=== PATIENT | female | born 1985 | race Caucasian/White ===

== ENCOUNTER 2017-06-30 18:23 | Inpatient (IN) | payer SELFPAY ==
[~2017-06-30] VITALS: Ht 160 cm; Wt 93.4 kg
--- NOTE | 2017-06-30 18:27 | NUR ---
Patient ambulated to bed 03.
--- NOTE | 2017-06-30 18:32 | NUR ---
[place] [employer] AT BEDSIDE.
[2017-06-30] MEDS ORDERED: ACTIVATED CHARCOAL 50 GM/240 ML TUBE PO ONE (18:35)
--- NOTE | 2017-06-30 18:35 | NUR ---
[place] Acevedo AT BEDSIDE.
[2017-06-30 18:39] VITALS: BP 190/121
[2017-06-30] MEDS ORDERED: ACTIVATED CHARCOAL 50 GM/240 ML TUBE ONE (18:40)
--- NOTE | 2017-06-30 18:40 | NUR ---
T IS 32Y/O HF PRESENTS TO ER FOR EVALUATION OF SUICIDAL IDEATION S/P INGESTING 24 500MG ACETAMINOPHEN TABLETS. PER HI SAID SHE TOOK THE MEDS IN THE BOTTLE. HX APPENDECTOMY. PT AA/O X3, RESP EVEN AND REGULAR.
--- NOTE | 2017-06-30 18:51 | NUR ---
MULTI PURPOSE MACHINE OPERATOR AT BEDSIDE AT THIS TIME.
--- NOTE | 2017-06-30 18:56 | NUR ---
pt stated intentional suicidal attempt by taking full container of tylenol pm--500mg tylenol w benadryl a/o x4 full clear speech---admits not medication compliant due to not having insurance for rx . Mounika HOGAN at bedside speaking with pt.- Officer Frannie #[phone]
[2017-06-30 19:02] LABS: BASOPHILS # (AUTO) 0.4 K/uL (0.00-0.22); EOSINOPHILS # (AUTO) 0.1 K/uL (0-0.4); HEMATOCRIT 40.7 % (36-48); HEMOGLOBIN 13.7 g/dL (12.0-16.0); MEAN CORPUSCULAR HEMOGLOBIN 30 pg (27-31); MEAN CORPUSCULAR HGB CONC 34 g/dL (33-37); MEAN CORPUSCULAR VOLUME 90 fL (80-94); MONOCYTES # (AUTO) 0.6 K/uL (0.8-1.0); PLATELET COUNT (AUTO) 289 K/uL (140-450); RED BLOOD CELL COUNT(AUTO) 4.55 MIL/uL (4.20-5.40); RED CELL DISTRIBUTION WIDTH 12.2 % (11.6-13.7); WHITE BLOOD COUNT (AUTO) 9.1 K/uL (4.8-10.8)
[2017-06-30 19:40] LABS: ALBUMIN 4.3 g/dL (3.4-5.0); ANION GAP 13.8 (8-16); ASPARTATE AMINOTRANSFERASE 21 U/L (15-37); CARBON DIOXIDE 24.8 mmol/L (21-32); CHLORIDE 104 mmol/L (98-107); CREATININE 0.9 mg/dL (0.6-1.3); GFR ARICAN-AMERICAN 93 mL/min (>90); GLUCOSE 120 mg/dL (74-106); POTASSIUM 3.6 mmol/L (3.5-5.1); SODIUM SERUM 139 mmol/L (136-145); TOTAL BILIRUBIN 0.4 mg/dL (0.0-1.0)
[2017-06-30 19:42] LABS: SALICYLATE < 2.8 mg/dL (2.8-20.0)
--- NOTE | 2017-06-30 19:44 | NUR ---
REPORTED TO POISON CONTROL AND SPOKEN TO PAOLO AND ADVISED, TO MONITOR , AND IF THE TYLENOL LEVEL GREATER THAN 10, LIVER ENZYMES ELEVATED, TO GIVE COOL MIST, AND CALL FOR DOSING.
[2017-06-30 19:51] LABS: ACETAMINOPHEN 148.2 ug/ml (10-30)
[2017-06-30 19:52] LABS: UREA NITROGEN, BLOOD 18 mg/dL (7-18)
--- NOTE | 2017-06-30 20:08 | NUR ---
Dr. Hardin evaluating patient at bedside.
--- NOTE | 2017-06-30 20:10 | NUR ---
SISTER AT BEDSIDE. PT SITTING QUIETLY AND AWAKE, SITTER AT BEDSIDE. SISTER REQUESTED TO TAKE PT'S BELONGINGS HOME, SECURITY CALLED, FAMILY HAS POSSESSION OF BELONGINGS.
--- NOTE | 2017-06-30 20:15 | NUR ---
poison controlled called regarding acetaminopehn levels/ LFTs/labs. received order to do repeat labs at 2200. SILVANA CANALES Sechrist informed.
--- NOTE | 2017-06-30 20:30 | NUR ---
SPOKEN TO PAOLO AND INFORMED HER THAT SHE TOOK ACETAMINOPHEN PM, AND ADVISED TO PUT ON SINGING TELEGRAM PERFORMER FOR 6 HOURS, ANF IF QRS PROLONGED GREATER THAN 120 SEC, TO ADMINISTER SODIUM BICARBONATE BOLUS, ON SEIZURE PRECAUTION, AND OBSERVED FOR AGITATION.
--- NOTE | 2017-06-30 20:30 | NUR ---
Noted by Dannielle.
[2017-06-30 21:10] LABS: APPEARANCE,URINE CLEAR (CLEAR); BILIRUBIN,URINE NEGATIVE (NEGATIVE); BLOOD, URINE NEGATIVE (NEGATIVE); LEUKOCYTE ESTERASE ,URINE NEGATIVE (NEGATIVE); NITRITE, URINE NEGATIVE (NEGATIVE); PH,URINE 5.5 (5.0-9.0); UGLUCOSE NEGATIVE (NEGATIVE)
[2017-06-30 21:13] LABS: COLOR,URINE STRAW (YELLOW)
--- NOTE | 2017-06-30 21:19 | NUR ---
Patient appears to be resting comfortably in bed. Respirations even and unlabored. All needs met at this time. sitter at bedside
[2017-06-30 21:20] LABS: BARBITURATE, URINE NEG. ng/ml (NEG <=200); BENZODIAZEPINE, URINE NEG. ng/mL (NEG <=200); CANNABINOID, URINE NEG. ng/mL (NEG <=50); COCAINE, URINE NEG. ng/mL (NEG <=300); OPIATE, URINE NEG. ng/mL (NEG <=2000); PHENCYCLIDINE SCREEN,URINE NEG. ng/mL (NEG <=25)
--- NOTE | 2017-06-30 22:10 | NUR ---
PT VOMITING X 30CC, BLACK EMESIS. ER MADE AWARE, ORDER FOR ZOFRAN RECEIVED, SEE MAR.
[2017-06-30] MEDS ORDERED: ONDANSETRON 4 MG/2 ML VIAL IVP ONE (22:15)
--- NOTE | 2017-06-30 22:31 | NUR ---
NO FURTHER EMETIC EPISODE NOTED, PT RESTING COMFORTABLY, VSS. ALL NEEDS MET AT THIS TIME. SITTER AT BEDSIDE
[2017-06-30] MEDS: NACL 0.9% 1,000 ML IV SCH (22:57)
[2017-06-30] MEDS ORDERED: ONDANSETRON 4 MG/2 ML VIAL IVP PRN (23:00)
[2017-06-30] MEDS ORDERED: HYDROcodone/APAP 7.5/325 MG 1 TAB PO PRN (23:00)
[2017-06-30] MEDS ORDERED: ACETAMINOPHEN 325 MG TAB PO PRN (23:00)
[2017-06-30] MEDS ORDERED: PANTOPRAZOLE 40 MG TABEC PO PRN (23:10)
[2017-06-30] MEDS ORDERED: LORazepam 1 MG TAB PO PRN (23:15)
--- NOTE | 2017-06-30 23:21 | NUR ---
Patient will be admitted to [facility]. Admited to TELE. Will go to room 109A Belongings list completed. BEDSIDE Report to [place]. IV SL AND PATENT. PT STABLE DURING TRANSFER.
--- NOTE | 2017-06-30 23:35 | NUR ---
ADMITTED 5150 PATIENT TO THE TELE UNIT, PATIENT IS SLEEPING AT THIS TIME, EASY TO AROUSE BUT DROWSY. A/OX2, NO S/S OF DISTRESS NOTED, RESPIRATION EVEN AND UNLABORED. VITAL SIGN STABLE, 1:1 SITTER AT BEDSIDE. SAFETY MEASURE ENSURED, WILL CONTINUE TO MONITOR.
--- NOTE | 2017-06-30 23:55 | NUR ---
MIGEL FROM POISON CONTROL CALLED, INFORMED HER ABOUT PATIENT'S CONDITION, MIGEL STATED, " AT THIS MOMENT, JUST OBSERVE HOW PATIENT IS DOING, IF THERE IS ANY CHANGE IN CONDITION, CALL ."
[2017-07-01] VITALS (9 sets, daily range): BP systolic 113–185; BP diastolic 77–114
[2017-07-01] MEDS ORDERED: LACTULOSE 20 GM/30 ML UDC PO SCH (00:20)
[2017-07-01 00:25] LABS: CHOL/HDL RATIO 2.5 (1-4.5); FREE T4 (FREE THYROXINE) 1.2 ng/dL (0.76-1.46); PHOSPHORUS 5.4 mg/dL (2.5-4.9); THYROID STIMULATING HORMONE 2.31 uIU/mL (0.34-3.74)
[2017-07-01 00:29] LABS: PROTHROMBIN TIME 10.4 secs (10.8-13.4)
--- NOTE | 2017-07-01 02:00 | NUR ---
PATIENT IS SLEEPING, RESPIRATION EVEN AND UNLABORED, NO S/S OF DISTRESS NOTED, 1:1 SITTER AT BEDSIDE. SAFETY MEASURE ENSURED, WILL CONTINUE TO MONITOR.
--- NOTE | 2017-07-01 04:01 | NUR ---
NO CHANGE IN CONDITION, PATIENT IS SLEEPING, RESPIRATION EVEN AND UNLABORED, NO S/S OF DISTRESS NOTED, 1:1 SITTER AT BEDSIDE. SAFETY MEASURE ENSURED, WILL CONTINUE TO MONITOR.
[2017-07-01] MEDS: LACTULOSE 20 GM/30 ML UDC PO SCH ×3 (04:32→20:35)
[2017-07-01] MEDS ORDERED: LORazepam 1 MG TAB PO SCH (05:00)
--- NOTE | 2017-07-01 06:21 | NUR ---
PATIENT IS SLEEPING, RESPIRATION EVEN AND UNLABORED, NO S/S OF DISTRESS NOTED, 1:1 SITTER AT BEDSIDE. SAFETY MEASURE ENSURED, WILL CONTINUE TO MONITOR.
[2017-07-01 07:01] LABS: BASOPHILS # (AUTO) 0.1 K/uL (0.00-0.22); BASOPHILS % (AUTO) 2.2 % (0.0-2.0); EOSINOPHILS # (AUTO) 0.1 K/uL (0-0.4); EOSINOPHILS % (AUTO) 0.9 % (0.0-4.0); HEMATOCRIT 38.6 % (36-48); HEMOGLOBIN 13.1 g/dL (12.0-16.0); LYMPHOCYTES # (AUTO) 2.2 K/uL (2.5-16.5); LYMPHOCYTES % (AUTO) 32.8 % (20.5-51.1); MEAN CORPUSCULAR HEMOGLOBIN 30 pg (27-31); MEAN CORPUSCULAR HGB CONC 34 g/dL (33-37); MEAN CORPUSCULAR VOLUME 90 fL (80-94); MONOCYTES # (AUTO) 0.5 K/uL (0.8-1.0); MONOCYTES % (AUTO) 6.8 % (1.7-9.3); NEUTROPHILS # (AUTO) 3.8 K/uL (1.8-7.7); NEUTROPHILS % (AUTO) 57.3 % (42.2-75.2); PLATELET COUNT (AUTO) 292 K/uL (140-450); RED BLOOD CELL COUNT(AUTO) 4.31 MIL/uL (4.20-5.40); RED CELL DISTRIBUTION WIDTH 12.2 % (11.6-13.7); WHITE BLOOD COUNT (AUTO) 6.7 K/uL (4.8-10.8)
--- NOTE | 2017-07-01 07:20 | NUR ---
ENDORSED PLAN OF CARE TO DAY RN, PATIENT IS IN STABLE CONDITION, NO S/S OF DISTRESS NOTED.
--- NOTE | 2017-07-01 07:25 | NUR ---
RECEIVED PATIENT REPORT AT BEDSIDE FROM NIGHT NURSE. PT IS SLEEPING AND EASILY AWAKEN TO VOICE. PATIENT IS AAOX3 DENIES SUICIDAL THOUGHTS. SHE STATES, "I FEEL BETTER TODAY." PT ON TELE MONITOR. SITTER IS AT BEDSIDE. IV NOTED ON THE RT AC WITH IVF'S INFUSING WELL. SKIN IS INTACT. PATIENT DENIES PAIN, AND IS AWARE POC FOR TODAY. WILL CONTINUE TO MONITOR.
[2017-07-01 07:39] LABS: ANION GAP 11.9 (8-16); CARBON DIOXIDE 26.3 mmol/L (21-32); CREATININE 1.2 mg/dL (0.6-1.3); MAGNESIUM 2.3 mg/dL (1.8-2.4); PHOSPHORUS 4.7 mg/dL (2.5-4.9); POTASSIUM 3.2 mmol/L (3.5-5.1)
[2017-07-01] MEDS: DOCUSATE SODIUM 100 MG GELCAP PO SCH ×2 (08:20→20:35)
[2017-07-01] MEDS: CALCIUM ACETATE 667 MG TAB PO SCH (08:20)
[2017-07-01] MEDS: NACL 0.9% 1,000 ML IV SCH ×2 (08:21→18:38)
[2017-07-01] MEDS: FOLIC ACID 1 MG TAB PO SCH (08:21)
[2017-07-01] MEDS: THIAMINE 100 MG TAB PO SCH (08:21)
[2017-07-01] MEDS: MULTIVITAMIN 1 TAB PO SCH (08:21)
--- NOTE | 2017-07-01 08:26 | NUR ---
ADMINISTERED SCHEDULED MEDICATIONS. PT REFUSED MULTI VITAMIN STATED, "IT MAKES ME SICK AND WANT TO VOMIT." PT SWALLOWED REST OF MEDICATIONS WITHOUT DIFFICULTY. THE BED IS IN LOW POSITION, SITTER AT BEDSIDE.
[2017-07-01] MEDS ORDERED: PANTOPRAZOLE 40 MG INJ VIAL IVP SCH (09:00)
[2017-07-01] MEDS ORDERED: KCL 20 MEQ/WATER INJ PREMIX 100 ML IV SCH (11:11)
--- NOTE | 2017-07-01 11:30 | NUR ---
ADMINISTERED SCHEDULED MEDICATIONS. PT SWALLOWED WITHOUT DIFFICULTY. IV MEDICATION IS INFUSING WELL. PATIENT'S NEEDS MET AT THIS TIME. WILL CONTINUE TO MONITOR.
[2017-07-01 13:19] LABS: ALBUMIN 3.4 g/dL (3.4-5.0); ANION GAP 10.5 (8-16); CARBON DIOXIDE 27.7 mmol/L (21-32); CREATININE 1.1 mg/dL (0.6-1.3); POTASSIUM 3.2 mmol/L (3.5-5.1); TOTAL BILIRUBIN 0.3 mg/dL (0.0-1.0)
--- NOTE | 2017-07-01 13:20 | NUR ---
PATIENT IS SLEEPING AND SHOWS NO S/S OF ACUTE DISTRESS ON ROOM AIR. SITTER AT BEDSIDE.
--- NOTE | 2017-07-01 15:15 | NUR ---
PATIENT RESTING AND SHOWS NO S/S OF ACUTE DISTRESS ON ROOM AIR. THE BED IS IN LOW POSITION WITH SITTER AT BED SIDE.
--- NOTE | 2017-07-01 16:00 | NUR ---
PATIENT BP IS 173/105 HR 64 AND DENIES CHEST PAIN, SOB, AND HEADACHE. PT ONLY STATED, " I JUST FEEL SLEEPY." DR WESLEY NOTIFIED OF BP
--- NOTE | 2017-07-01 16:15 | NUR ---
PATIENT BP IS 185/114. DR PLACED ORDERS FOR NITROGLYCERIN 0.4 MG FOR HIGH BLOOD PRESSURE. WAITING FOR PHARMACY TO VERIFY ORDER.
[2017-07-01] MEDS ORDERED: NITROGLYCERIN 0.4 MG TAB SL SCH (16:30)
--- NOTE | 2017-07-01 16:55 | NUR ---
ADMINISTERED NITROGLYCERIN 0.4 MG FOR HIGH BLOOD PRESSURE WILL REASSESS BP IN 30 MIN. PATIENT IS ASYMPTOMATIC, DENIES CHEST PAIN, SOB, AND HEADACHE. WILL CONTINUE TO MONITOR.
--- NOTE | 2017-07-01 17:41 | NUR ---
PATIENT BP WAS REASSESSED AND IS AT 147/96 HR 64 AND SHOWS NO S/S OF ACUTE DISTRESS ON ROOM AIR, DENIES PAIN. WILL CONTINUE TO MONITOR.
--- NOTE | 2017-07-01 19:15 | NUR ---
RECEIVED REPORT FROM AM NURSE. PT RESTING IN BED, AOX4, AMBULATORY, ABLE TO VERBALIZE NEEDS. PT DENIES CHEST PAIN, SOB OR S/S OF ACUTE DISTRESS. PLANT SPRAYER IN PLACE. IV ACCESS ASYMPTOMATIC, PATENT AND INTACT. IVF INFUSING WELL. DISCUSSED AND REVIEWED PLAN OF CARE WITH PT. PT VERBALIZED UNDERSTANDING. ALL NEEDS MET. 1:1 SITTER WITH CLOSE MONITORING MAINTAINED, ENVIRONMENT CHECKED, SAFETY MEASURES ENSURED. WILL CONTINUE TO MONITOR.
--- NOTE | 2017-07-01 19:35 | NUR ---
BP 182/98 AND 177/93, HR 72. MADE DR VALENZUELA AWARE. ORDERS PENDING, WILL CARRY OUT.
[2017-07-01] MEDS: METOPROLOL SUCCINATE 50 MG TABER PO SCH (20:36)
--- NOTE | 2017-07-01 20:36 | NUR ---
PT'S BP RECHECKED 141/72 AND 141/79, HR 77. MADE DR VALENZUELA AWARE. ADMINISTERED DUE MEDS TOPROL XL 12.5MG PO AND ATIVAN 1MG PO ORDERED BY , AND REMAINING DUE MEDS WITH EDUCATION. PT VERBALIZED UNDERSTANDING, TOLERATED WELL. ALL NEEDS MET. IVF INFUSING WELL. SAFETY MEASURES ENSURED. CALL LIGHT WITHIN REACH. WILL CONTINUE TO MONITOR.
--- NOTE | 2017-07-01 20:40 | NUR ---
DR MARTINEZ AT BEDSIDE TO DISCUSS PT CONDITION AND PLAN OF CARE WITH PT. WAS NOTIFIED THAT PT IS CLEARED FROM THE 5150 HOLD.
--- NOTE | 2017-07-01 22:02 | NUR ---
PT TRANSFERRED TO ROOM 112A. ALL BELONGINGS CHECKED. ENDORSED PLAN OF CARE TO AM NURSE. CONDITION STABLE. Addendum: 07/01/17 at 2204 by Elijah Grant RN ENDORSED PLAN OF CARE TO CONTINUING NURSE.
--- NOTE | 2017-07-01 22:03 | NUR ---
PATIENT REPORT RECEIVED FROM CIPRIANO THOMPSON. PATIENT TRANSFERRED TO 112A. PATIENT NO LONGER NEEDS 1:1 SITTER. PATIENT IS AWAKE, ALERT AND ORIENTED. NO SIGNS AND SYMPTOMS OF DISTRESS NOTED. NO COMPLAINTS OF PAIN AT THIS TIME. BED IN LOWEST POSITION, SIDE RAILS UP AND CALL LIGHT WITHIN REACH. WILL CONTINUE TO MONITOR.
[2017-07-02] VITALS: BP 138/81
--- NOTE | 2017-07-02 03:30 | NUR ---
CHECKED ON PATIENT. PATIENT IS ASLEEP. NO SIGNS AND SYMPTOMS OF DISTRESS NOTED. BED IN LOWEST POSITION, SIDE RAILS UP AND CALL LIGHT WITHIN REACH. WILL CONTINUE TO MONITOR.
[2017-07-02 04:00] VITALS: BP 150/81
[2017-07-02] MEDS: LACTULOSE 20 GM/30 ML UDC PO SCH ×2 (04:34→12:23)
[2017-07-02] MEDS: NACL 0.9% 1,000 ML IV SCH ×2 (04:41→14:57)
[2017-07-02 07:06] LABS: BASOPHILS # (AUTO) 0.2 K/uL (0.00-0.22); BASOPHILS % (AUTO) 2.6 % (0.0-2.0); EOSINOPHILS # (AUTO) 0.1 K/uL (0-0.4); HEMOGLOBIN 12.1 g/dL (12.0-16.0); LYMPHOCYTES # (AUTO) 2.5 K/uL (2.5-16.5); LYMPHOCYTES % (AUTO) 32.4 % (20.5-51.1); MEAN CORPUSCULAR HEMOGLOBIN 30 pg (27-31); MEAN CORPUSCULAR HGB CONC 34 g/dL (33-37); MEAN CORPUSCULAR VOLUME 89 fL (80-94); MONOCYTES # (AUTO) 0.3 K/uL (0.8-1.0); MONOCYTES % (AUTO) 3.9 % (1.7-9.3); NEUTROPHILS # (AUTO) 4.5 K/uL (1.8-7.7); NEUTROPHILS % (AUTO) 60.1 % (42.2-75.2); PLATELET COUNT (AUTO) 240 K/uL (140-450); RED BLOOD CELL COUNT(AUTO) 4.03 MIL/uL (4.20-5.40); RED CELL DISTRIBUTION WIDTH 12.6 % (11.6-13.7); WHITE BLOOD COUNT (AUTO) 7.6 K/uL (4.8-10.8)
--- NOTE | 2017-07-02 07:14 | NUR ---
PATIENT REPORT GIVEN TO MORNING NURSE AT BEDSIDE. PATIENT IS IN STABLE CONDITION.
[2017-07-02 07:18] LABS: ANION GAP 11.5 (8-16); CARBON DIOXIDE 26.5 mmol/L (21-32); CREATININE 0.9 mg/dL (0.6-1.3); MAGNESIUM 1.8 mg/dL (1.8-2.4)
--- NOTE | 2017-07-02 07:40 | NUR ---
RECEIVED REPORT FROM CIPRIANO GARNER. PT RESTING IN BED. AAOX4. NO S/S OF ACUTE DISTRESS. PT DENIES PAIN. IV SITE PATENT AND INTACT. TELE BOX IN PLACE. CALL LIGHT WITHIN REACH. SAFETY MEASURES ENSURED. WILL CONTINUE TO MONITOR.
[2017-07-02 08:00] VITALS: BP 156/94
[2017-07-02] MEDS: FOLIC ACID 1 MG TAB PO SCH (08:36)
[2017-07-02] MEDS: CALCIUM ACETATE 667 MG TAB PO SCH (08:36)
[2017-07-02] MEDS: MULTIVITAMIN 1 TAB PO SCH (08:37)
[2017-07-02] MEDS: METOPROLOL SUCCINATE 50 MG TABER PO SCH (08:37)
[2017-07-02] MEDS: DOCUSATE SODIUM 100 MG GELCAP PO SCH (08:37)
[2017-07-02] MEDS: THIAMINE 100 MG TAB PO SCH (08:37)
[2017-07-02] MEDS ORDERED: METOPROLOL SUCCINATE 50 MG TABER PO SCH (09:00)
[2017-07-02] MEDS ORDERED: SERTRALINE 50 MG TAB PO SCH (09:00)
--- NOTE | 2017-07-02 09:59 | NUR ---
PATIENT HAS BEEN SCREENED AND CATEGORIZED LOW NUTRITION RISK. PATIENT WILL BE SEEN WITHIN 7 DAYS OF ADMISSION. 07/07/[address]
[2017-07-02 12:00] VITALS: BP 145/89
[2017-07-02] MEDS ORDERED: LORA-476 PO (13:38)
[2017-07-02] MEDS ORDERED: POTASSIUM CHLORIDE 10 MEQ TABER PO SCH (14:08)
--- NOTE | 2017-07-02 14:36 | NUR ---
PT CLEARED FOR DISCHARGE. NO S/S OF ACUTE DISTRESS. PT DENIES PAIN. IV TAKEN OUT TIP INTACT. AWAITING SISTER FOR CLOTHES AND TRANSPORT.
--- NOTE | 2017-07-02 15:50 | NUR ---
PT DISCHARGED. PAPERWORK EXPLAINED AND SIGNED. SISTER HERE FOR TRANSPORT. NO S/S OF ACUTE DISTRESS. PT DENIES PAIN. PT REFUSED WHEELCHAIR. PT AMBULATED TO FRONT LOBBY.
== END 2017-07-02 15:49 | disposition home or self-care (01) | DRG 917 ==
LOC: MED 18:23 → MTU 23:02
PROVIDERS: ADMIT Student in an Organized Health Care Education/Training Program; ATTEND Student in an Organized Health Care Education/Training Program
DX: T39.1X2A Poisoning by 4-Aminophenol derivatives, intentional self-harm, initial encounter (principal); G92 Toxic encephalopathy; F33.2 Major depressive disorder, recurrent severe without psychotic features; E72.20 Disorder of urea cycle metabolism, unspecified; R45.851 Suicidal ideations; Z91.14 Patient's other noncompliance with medication regimen; F41.1 Generalized anxiety disorder; Z91.5 Personal history of self-harm; F10.20 Alcohol dependence, uncomplicated; F15.10 Other stimulant abuse, uncomplicated; Y92.89 Other specified places as the place of occurrence of the external cause; E66.9 Obesity, unspecified; Z68.36 Body mass index [BMI] 36.0-36.9, adult; E83.39 Other disorders of phosphorus metabolism; E78.5 Hyperlipidemia, unspecified; E87.6 Hypokalemia; F41.9 Anxiety disorder, unspecified; I10 Essential (primary) hypertension
CPT/HCPCS: 36415; 71010; 80048; 80053; 80305; 81003; 81025; 82140; 82150; 82550; 82553; 83036; 83605; 83690; 83735; 83880; 84100; 84439; 84443; 84484; 85025; 85610; 85730; 87081; 93005; 96374; 99285; G0480; G0482; J2405; J3480; J7030

== ENCOUNTER 2017-07-09 13:36 | Emergency (ER) | payer SELFPAY ==
[~2017-07-09] VITALS: Ht 160 cm; Wt 99.8 kg
[~2017-07-09 13:36] MED LIST: LORA-476 PO
[2017-07-09 13:45] VITALS: BP 193/111
--- NOTE | 2017-07-09 13:52 | NUR ---
PATIENT TRIAGED AND SENT TO LOBBY STABLE AT THIS TIME.
--- NOTE | 2017-07-09 15:15 | NUR ---
CALLED PATIENT TO OVERFLOW FROM LOBBY; NO ANSWER. PATIENT LEFT WITHOUT BEING SEEN BY DR. OJEDA. NO FURTHER CARE PROVIDED FOR PATIENT.
== END 2017-07-09 15:15 | disposition left against medical advice (07) ==
LOC: MED 13:36
DX: Z53.21 Procedure and treatment not carried out due to patient leaving prior to being seen by health care provider (principal)

== ENCOUNTER 2018-12-25 23:32 | Emergency (ER) | payer SELFPAY ==
[~2018-12-25] VITALS: Ht 160 cm; Wt 88.9 kg
[2018-12-25 23:35] VITALS: BP 168/95
--- NOTE | 2018-12-26 00:05 | NUR ---
PT BIB SELF C/O HIGH BLOOD PRESSURE. PT STATES SHE HAS NOT BEEN FEELING WELL SINCE THIS MORNING, BP WAS HIGH AT HOME IN THE 220s PT TOOK LOSARTAN THIS MORNING, PT STILL FELT ANXIOUS ALL DAY. PT STATES 3/10 RIGHT UPPER BACK PAIN, DENIES TRAUMA OR INJURY. DENIES CP, BLURRIED VISION, H/A OR DIZZINESS. PT ACTING APPROPRAITLY, SPEAKING IN CLEAR AND COMPLETE SENTENCES. PT IN GOWN, IN BED; BED IN LOWER LOCKED POSITION, BEDRAILS UP X1. PT PLACED ON BEDSIDE CONTRACTING ANALYST, PENDING ERMD EVAL. BP 166/96 AT THIS TIME. PMH: HTN, DEPRESSION AND ANXIETY RX: LOSARTAN, ZOLOFT
--- NOTE | 2018-12-26 01:25 | NUR ---
Patient discharged with v/s stable. Patient acting appropriatly, states she feels better since her blood pressure is down. Written and verbal after care instructions given and explained. Patient alert, oriented and verbalized understanding of instructions. Ambulatory with steady gait. All questions addressed prior to discharge. ID band removed. Patient advised to follow up with PMD. Rx of Motrin given. Patient educated on indication of medication including possible reaction and side effects. Opportunity to ask questions provided and answered.
[2018-12-26 01:50] VITALS: BP 160/93
== END 2018-12-26 01:25 | disposition home or self-care (01) ==
LOC: MED 23:32
DX: I10 Essential (primary) hypertension (principal); Z90.49 Acquired absence of other specified parts of digestive tract; Z79.899 Other long term (current) drug therapy
CPT/HCPCS: 99282

== ENCOUNTER 2020-05-06 19:08 | Emergency (ER) | payer SELFPAY ==
[~2020-05-06] VITALS: Ht 160 cm; Wt 102.1 kg
--- NOTE | 2020-05-06 19:20 | NUR ---
PT TO BE SEEN IN TENT PER ADELITA SANTIAGO
[2020-05-06 19:27] VITALS: BP 179/104
--- NOTE | 2020-05-06 19:45 | NUR ---
PT STATES THAT AN OINTMENT CREAM WILL NOT HELP HER SYMPTOMS. ASKED TO SPEAK TO ERMD. PT AMBULATED TO WITH STEADY GAIT TO PROVIDE UA.
--- NOTE | 2020-05-06 19:50 | NUR ---
PT PENDING DISCHARGE AFTER PROVIDING URINE SPECIMEN.
--- NOTE | 2020-05-06 19:51 | NUR ---
PT AMBULATED TO RESTROOM TO PROVIDE SPECIMEN.
--- NOTE | 2020-05-06 20:00 | NUR ---
PT LEFT FACILITY WITHOUT PROVIDING URINE SPECIMEN. PT DID NOT RECEIVE DISCHARGE INSTRUCTIONS AND RX. PT LEFT IN STABLE CONDITION.
== END 2020-05-06 20:00 | disposition home or self-care (01) ==
LOC: MED 19:08
DX: L29.9 Pruritus, unspecified (principal); I10 Essential (primary) hypertension; Z79.899 Other long term (current) drug therapy; Z98.890 Other specified postprocedural states
CPT/HCPCS: 99282

== ENCOUNTER 2020-09-29 11:31 | Emergency (ER) | payer SELFPAY ==
[~2020-09-29] VITALS: Ht 160 cm; Wt 103.0 kg
[2020-09-29 11:43] VITALS: BP 174/112
[2020-09-29] MEDS ORDERED: LOSARTAN 25 MG TAB PO SCH (12:10)
[2020-09-29] MEDS ORDERED: amLODIPine 5 MG TAB PO ONE (12:10)
[2020-09-29] MEDS ORDERED: IBUPROFEN 600 MG TAB PO SCH (13:35)
[2020-09-29] MEDS ORDERED: LOSA100T51 PO (13:37)
[2020-09-29] MEDS ORDERED: AMLO10TA PO (13:37)
[2020-09-29 14:23] VITALS: BP 144/83
== END 2020-09-29 14:23 | disposition home or self-care (01) ==
LOC: MED 11:31
DX: M25.562 Pain in left knee (principal); M25.531 Pain in right wrist; I10 Essential (primary) hypertension; Z79.899 Other long term (current) drug therapy; Z98.890 Other specified postprocedural states; Z90.49 Acquired absence of other specified parts of digestive tract
CPT/HCPCS: 73100; 73120; 73560; 99284

== ENCOUNTER 2021-12-10 06:50 | Emergency (ER) | payer SELFPAY ==
[~2021-12-10] VITALS: Ht 160 cm; Wt 117.9 kg
[~2021-12-10 06:50] MED LIST changes: +AMLO10TA PO; +LOSA100T51 PO
[2021-12-10 06:57] VITALS: BP 144/78
--- NOTE | 2021-12-10 07:04 | NUR ---
TO BED 4 FROM TRIAGE
--- NOTE | 2021-12-10 07:06 | NUR ---
ermd at bedside
[2021-12-10] MEDS ORDERED: PSEUDOEPHEDRINE 30 MG TAB PO ONE (07:10)
[2021-12-10] MEDS ORDERED: ONDANSETRON 4 MG ODT PO ONE (07:10)
[2021-12-10] MEDS ORDERED: predniSONE 20 MG TAB PO ONE (07:10)
--- NOTE | 2021-12-10 07:33 | NUR ---
anh and influenza swabbed at this time
--- NOTE | 2021-12-10 07:38 | NUR ---
36 y/o female, c/o cough and congestion that started yesterday. pt also c/o runny nose, chest congestion, burning sensation in the throat with chest discomfort with coughing. denies anyone else at home sick with same s/s. lung sounds clear bl, heart rate even and regular. a&ox4 with even and steady gait. pmh: tubal ligation, appendectomy due to peritoneal abscess, htn nka med: denies
--- NOTE | 2021-12-10 07:39 | NUR ---
pt ambulating with even and steady gait to bathroom for urine sample at this time
--- NOTE | 2021-12-10 07:47 | NUR ---
pt taken to xray via wheelchair
[2021-12-10] MEDS ORDERED: BENZ150C2 PO (08:06)
[2021-12-10] MEDS ORDERED: MUC600 PO (08:06)
[2021-12-10] MEDS ORDERED: PSEU120T23 PO (08:06)
[2021-12-10 08:31] VITALS: BP 144/78
--- NOTE | 2021-12-10 08:31 | NUR ---
Patient discharged with v/s stable. Written and verbal after care instructions given and explained. Patient alert, oriented and verbalized understanding of instructions. Ambulatory with steady gait. All questions addressed prior to discharge. ID band removed. Patient advised to follow up with PMD. Rx of benzonatate, guaifenesin, pseudoephredrine (sent) given. Patient educated on indication of medication including possible reaction and side effects. Opportunity to ask questions provided and answered.
== END 2021-12-10 08:31 | disposition home or self-care (01) ==
LOC: MED 06:50
DX: J06.9 Acute upper respiratory infection, unspecified (principal); Z20.822 Contact with and (suspected) exposure to COVID-19; I10 Essential (primary) hypertension; Z90.49 Acquired absence of other specified parts of digestive tract; Z98.51 Tubal ligation status; Z79.899 Other long term (current) drug therapy
CPT/HCPCS: 71046; 81002; 81025; 87426; 87804; 99284; J7512; Q0162